=== PATIENT | female | born 1970 | race Caucasian/White ===

== ENCOUNTER 2017-12-16 11:35 | Emergency (ER) | payer OTHER ==
[~2017-12-16] VITALS: Ht 167.6 cm; Wt 68.0 kg
[~2017-12-16 11:35] MED LIST: ALBU90OI; ALBU90OI6 INH; ALPR1 PO; Ativan1 MG PO; CLON.1 PO; CYCL10 PO; DIVA250EC PO; DIVA500EC PO; GABA600 PO; HYDACE5 PO; IBUP600; NAPR500 PO; NAPR550 PO; Norco 5-325 Ta1 EACH PO; OXYC5 PO; QUET200 PO; TRAM50 PO
[2017-12-16] MEDS ORDERED: Zofran Odt4 MG SL (13:03)
[2017-12-16] MEDS ORDERED: Pyridium100 MG PO (13:03)
[2017-12-16] MEDS ORDERED: Bactrim Ds Tab1 EACH PO (13:03)
[2017-12-16 13:15] LABS: Bilirubin, Urine Neg (Neg); Blood, Urine 4+ (Neg); Glucose Qualitative, Urine Neg (Neg); Ketones, Urine Neg (Neg); Leukocyte Esterase, Urine 2+ (Neg); Nitrite, Urine Neg (Neg); Protein, Urine 1+ (Neg); Urobilinogen, Urine 1+ (Normal)
[2017-12-16 13:24] LABS: Appearance, Urine Hazy (Clear); Color, Urine Yellow (P-Yellow)
[2017-12-16 13:25] LABS: Squamous Epithelial Cells Few /hpf (Few); White Blood Cells, Urine 50-100 /hpf (0-5)
[2017-12-16 13:26] LABS: Bacteria Mod /hpf
== END 2017-12-16 13:15 | disposition home or self-care (01) ==
LOC: ER 11:35
PROVIDERS: Emergency Medicine
DX: N12 Tubulo-interstitial nephritis, not specified as acute or chronic (principal); G40.909 Epilepsy, unspecified, not intractable, without status epilepticus; F17.200 Nicotine dependence, unspecified, uncomplicated; Z88.0 Allergy status to penicillin; Z88.6 Allergy status to analgesic agent; Z79.899 Other long term (current) drug therapy
CPT/HCPCS: 81001; 81025; 87086; 99283